=== PATIENT | male | born 1955 | race Asian ===

== ENCOUNTER 2023-05-11 07:58 | Day surgery (SDC) | payer MEDICARE, OTHER ==
[~2023-05-11] VITALS: Ht 170.2 cm; Wt 95.3 kg
[2023-05-11] MEDS ORDERED: fentaNYL citrate 0.05 MG/ML VIAL ONE (10:33)
[2023-05-11] MEDS ORDERED: MIDAZOLAM 2 MG/2 ML VIAL ONE (10:33)
[2023-05-11] MEDS ORDERED: MIDAZOLAM 2 MG/2 ML VIAL IVP ONE (13:35)
== END 2023-05-11 12:00 | disposition home or self-care (01) ==
LOC: MOR 07:58 → MMU 07:59 → MOR 12:00
PROVIDERS: ATTEND Internal Medicine Gastroenterology
DX: R11.10 Vomiting, unspecified (principal); K22.89 Other specified disease of esophagus; K44.9 Diaphragmatic hernia without obstruction or gangrene; R13.10 Dysphagia, unspecified; I10 Essential (primary) hypertension; E78.00 Pure hypercholesterolemia, unspecified; Z79.899 Other long term (current) drug therapy
CPT/HCPCS: 43239; J2250; J3010